=== PATIENT | male | born 1955 | race Caucasian/White ===

== ENCOUNTER 2018-12-14 11:45 | Outpatient (CLI) ==
[2013-08-28 14:56] VITALS: BMI 20.3
--- NOTE | 2018-12-14 13:03 | DI ---
EXAM: Chest two views HISTORY: History of tuberculosis COMPARISON: None TECHNIQUE: Two views of the chest were performed FINDINGS: The lungs are clear. There is no pleural effusion or pneumothorax. The heart is normal i n size. The mediastinal contour is normal. There are no acute abnormalities of the bones. IMPRESSION: No acute cardiopulmonary process.
== END 2018-12-14 11:46 | disposition home or self-care (01) ==
LOC: RAD 11:45
PROVIDERS: ATTEND Nurse Practitioner Family
DX: Z86.11 Personal history of tuberculosis (principal)

== ENCOUNTER 2018-12-22 12:47 | Outpatient (CLI) ==
[2013-08-28 14:56] VITALS: BMI 20.3
--- NOTE | 2018-12-22 14:06 | US ---
EXAM: Bilateral carotid artery Doppler History: Near-syncope Technique: Multiple sonographic images through the bilateral internal carotid arteries were obtained . Color duplex Doppler was used to interrogate vascular flow. Findings: The right ICA peak systolic velocity is within normal limits measuring 65 cm/sec. The right ICA/cca PSV ratio is normal at 0.80. The right vertebral artery is patent and demonstrates antegrade flow. Perkins scale images demonstrate mild plaque buildup within the right internal carotid artery. The left ICA peak systolic velocity is within normal limits measuring 67 cm/sec. Left ICA/cca PSV ra bhargav is normal at 1.1. The left vertebral artery is patent and demonstrates antegrade flow. Perkins sca le images demonstrate mild plaque buildup within the left internal carotid artery Impression: No significant hemodynamic stenosis of the bilateral internal carotid arteries.
== END 2018-12-22 12:48 | disposition home or self-care (01) ==
LOC: RAD 12:47
PROVIDERS: ATTEND Nurse Practitioner Family
DX: R55 Syncope and collapse (principal)